=== PATIENT | female | born 1955 | race Caucasian/White ===

== ENCOUNTER 2022-02-25 18:46 | Emergency (ER) | payer OTHER ==
--- NOTE | 2022-02-25 20:30 | ER ---
Nurse's Notes [facility] Name: Emmanuelle Sosa Age: 66 yrs Sex: Female : 1955 Arrival Date: 02/25/2022 Time: 18:48 Bed Waiting Private MD: Diagnosis: SARS-associated coronavirus as the cause of diseases classified elsewhere Presentation: 02/25 19:07 Chief complaint: Patient states: [place] - I must have gotten ld1 overheated because I was running fever and feeling weak after. Coronavirus screen: Client presents with at least one sign or symptom that may indicate coronavirus-19. Standard/surgical mask placed on the client. Ebola Screen: No symptoms or risks identified at this time. Initial Sepsis Screen: Does the patient meet any 2 criteria? No. Patient's initial sepsis screen is negative. Does the patient have a suspected source of infection? No. Patient's initial sepsis screen is negative. Risk Assessment: Do you want to hurt yourself or someone else? Patient reports no desire to harm self or others. Onset of symptoms was February 25, 2022. 19:07 Method Of Arrival: Ambulatory ld1 19:07 Acuity: DEVORA 3 ld1 Triage Assessment: 19:06 The onset of the patients symptoms was. ld1 19:07 General: Appears in no apparent distress. comfortable, Behavior is calm, cooperative, ld1 appropriate for age. Pain: Denies pain. EENT: No signs and/or symptoms were reported regarding the EENT system. Neuro: Level of Consciousness is awake, alert, obeys commands, Oriented to person, place, time, situation. Cardiovascular: Capillary refill < 3 seconds Patient's skin is warm and dry. Respiratory: Airway is patent Respiratory effort is even, unlabored. GI: Abdomen is round obese. : No signs and/or symptoms were reported regarding the genitourinary system. Derm: No signs and/or symptoms reported regarding the dermatologic system. Musculoskeletal: No signs and/or symptoms reported regarding the musculoskeletal system. Historical: - Allergies: : No Known Allergies; ld1 - Home Meds: : losartan 50 mg oral tab 1 tab 2 times per day [Active]; metoprolol tartrate 37.5 mg ld1 Oral tab 1 tab once daily [Active]; - PMHx: 19:06 Hypertensive disorder; Seizure; ld1 - PSHx: 19:06 section; Cholecystectomy; ld1 - Immunization history:: Adult Immunizations up to date, Client reports having NOT received the Covid vaccine. - Social history:: Smoking status: Patient denies any tobacco usage or history of. Patient uses alcohol, occasionally. - Family history:: not pertinent. - Hospitalizations: : No recent hospitalization is reported. Screenin:56 Abuse screen: Denies threats or abuse. Denies injuries from another. Nutritional ld1 screening: No deficits noted. Tuberculosis screening: No symptoms or risk factors identified. Fall Risk None identified. Assessment: 20:11 Reassessment: ERP in triage assessing patient. ld1 20:56 Reassessment: See triage assessment. ld1 Vital Signs: 19:07 BP 122 / 80; Pulse 79; Resp 18; Temp 98.9(TE); Pulse Ox 97% on R/A; Weight 78.02 kg; ld1 Height 5 ft. 4 in. (162.56 cm); Pain 0/10; 20:56 BP 126 / 81; Pulse 76; Resp 18; Pulse Ox 98% on R/A; ld1 19:07 Body Mass Index 29.52 (78.02 kg, 162.56 cm) ld1 ED Course: 18:48 Patient arrived in ED. as 19:07 Arm band placed on right wrist. ld1 19:08 Triage completed. ld1 20:09 Cal Chavis MD is Attending Physician. rn 20:11 COVID-19 SARS RT PCR (Document "Date of Onset" if Symptomatic) Sent. ld1 20:56 Patient has correct armband on for positive identification. Placed in gown. Bed in low ld1 position. Call light in reach. Side rails up X2. telemetry monitor on. Pulse ox on. NIBP on. Door closed. Noise minimized. 20:56 No provider procedures requiring assistance completed. Patient did not have IV access ld1 during this emergency room visit. Administered Medications: No medications were administered Medication: 20:56 VIS not applicable for this client. ld1 Outcome: 20:30 Discharge ordered by . rn 20:56 Discharged to home ambulatory, with family. ld1 20:56 Condition: stable 20:56 Discharge instructions given to patient, family, Instructed on discharge instructions, follow up and referral plans. Demonstrated understanding of instructions, follow-up care. 20:57 Patient left the ED. ld1 Signatures: Brinda Lorenzo Roman, MD MD rn Eugenia Hull RN RN ld1
--- NOTE | 2022-02-25 20:30 | EDPHYS ---
Physician Documentation [facility] Name: Emmanuelle Sosa Age: 66 yrs Sex: Female : 1955 Arrival Date: 02/25/2022 Time: 18:48 Bed Waiting Private MD: ED Physician Cal Chavis HPI: 02/25 20:27 This 66 yrs old Female presents to ER via Ambulatory with complaints of Weakness. rn 20:27 The patient reports fever, that was measured at 101 degrees Fahrenheit. Onset: The rn symptoms/episode began/occurred 2 day(s) ago. Modifying factors: there are no obvious modifying factors. Associated signs and symptoms: Pertinent positives: chills, headache, nausea, sore throat, Pertinent negatives: abdominal pain, chest pain, skin rash, shortness of breath. Severity of symptoms: At their worst the symptoms were mild in the emergency department the symptoms are unchanged. The patient has not experienced similar symptoms in the past. The patient has not recently seen a physician. Pt reports fever, chills, muscle aches, malaise, nausea, headache, went to [place] over weekend, started feeling sick 2 days ago. . Historical: - Allergies: 19:06 No Known Allergies; ld1 - Home Meds: 19:06 losartan 50 mg oral tab 1 tab 2 times per day [Active]; metoprolol tartrate 37.5 mg ld1 Oral tab 1 tab once daily [Active]; - PMHx: 19:06 Hypertensive disorder; Seizure; ld1 - PSHx: 19:06 section; Cholecystectomy; ld1 - Immunization history:: Adult Immunizations up to date, Client reports having NOT received the Covid vaccine. - Social history:: Smoking status: Patient denies any tobacco usage or history of. Patient uses alcohol, occasionally. - Family history:: not pertinent. - Hospitalizations: : No recent hospitalization is reported. ROS: 20:27 Constitutional: + fever and malaise Eyes: Negative for injury, pain, redness, and biology internship, Neck: Negative for injury, pain, and swelling, Cardiovascular: Negative for chest pain, palpitations, and edema, Respiratory: Negative for shortness of breath, cough, wheezing, and pleuritic chest pain, Abdomen/GI: Negative for abdominal pain, vomiting, diarrhea, and constipation, Back: Negative for injury and pain, MS/Extremity: Negative for injury and deformity, Skin: Negative for injury, rash, and discoloration, Neuro: Negative for numbness, tingling, and seizure. Exam: 20:27 Constitutional: This is a well developed, well nourished patient who is awake, alert, rn and in no acute distress. Ambulatory to triage without difficulty or distress Head/Face: Normocephalic, atraumatic. Eyes: Periorbital areas with no swelling, redness, or edema. ENT: MMM Cardiovascular: Regular rate and rhythm. No pulse deficits. Respiratory: No increased work of breathing, no retractions or nasal flaring. Abdomen/GI: Soft, non-tender Skin: Warm, dry with normal turgor. Normal color with no rashes, no lesions, and no evidence of cellulitis. MS/ Extremity: Pulses equal, no cyanosis. Neurovascular intact. Full, normal range of motion. Equal circumference. Neuro: Awake and alert, GCS 15, oriented to person, place, time, and situation. Cranial nerves II-XII grossly intact. Motor strength 5/5 in all extremities. Sensory grossly intact. Cerebellar exam normal. Normal gait. Vital Signs: 19:07 BP 122 / 80; Pulse 79; Resp 18; Temp 98.9(TE); Pulse Ox 97% on R/A; Weight 78.02 kg; ld1 Height 5 ft. 4 in. (162.56 cm); Pain 0/10; 20:56 BP 126 / 81; Pulse 76; Resp 18; Pulse Ox 98% on R/A; ld1 19:07 Body Mass Index 29.52 (78.02 kg, 162.56 cm) ld1 MDM: 20:09 Patient medically screened. rn 20:27 Differential diagnosis: viral Infection, URI. 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 Counseling: I had a detailed discussion with the patient and/or guardian regarding: the historical points, exam findings, and any diagnostic results supporting the discharge/admit diagnosis, lab results, the need for outpatient follow up, to return to the emergency department if symptoms worsen or persist or if there are any questions or concerns that arise at home. Special discussion: I discussed with the patient/guardian in detail that at this point there is no indication for admission to the hospital. It is understood, however, that if the symptoms persist or worsen the patient needs to return immediately for re-evaluation. 02/25 19:10 Order name: COVID-19 SARS RT PCR (Document "Date of Onset" if Symptomatic); Complete ld1 Time: 20:21 02/25 20:16 Order name: Flu ld1 Administered Medications: No medications were administered Disposition Summary: 02/25/22 20:30 Discharge Ordered Location: Home rn Problem: new rn Symptoms: have improved rn Condition: Stable rn Diagnosis - SARS-associated coronavirus as the cause of diseases classified elsewhere rn Followup: rn - With: Private Physician - When: As needed - Reason: Recheck today's complaints, Re-evaluation by your physician Discharge Instructions: - Discharge Summary Sheet rn - COVID-19 rn - Things to Know about the COVID-19 Pandemic - [facility] [place][NOTE 3] rn - 10 Things You Can Do to Manage Your COVID-19 Symptoms at Home - [facility] [place][NOTE 3] rn Forms: - Medication Reconciliation Form rn - Thank You Letter rn - Antibiotic rn paralegal - Prescription Opioid Use rn Signatures: Dispatcher [employer] Cal Scott MD MD rn Dibbern, Lauren, RN RN ld1
[2022-02-25 22:27] VITALS: TEMP 98.9
[2022-02-25 22:29] VITALS: BP 126/81; O2SAT 98
== END 2022-02-25 20:57 | disposition home or self-care (01) ==
LOC: ER 18:46
DX: U07.1 COVID-19 (principal); I10 Essential (primary) hypertension
CPT/HCPCS: U0003